=== PATIENT | female | born 1950 | race Caucasian/White ===

== ENCOUNTER 2016-07-01 11:41 | Observation (INO) ==
[2016-07-01] MEDS ORDERED: ACETAMINOPHEN 325 MG TABLET PO PRN (11:46)
[2016-07-01] MEDS ORDERED: ONDANSETRON 4 MG/2 ML VIAL IV PRN (11:46)
[2016-07-01] MEDS ORDERED: MORPHINE 2 MG/1 ML SYRINGE IV PRN (11:46)
[2016-07-01] MEDS ORDERED: ENOXAPARIN 40 MG/0.4 ML SYRINGE SUBCUT SCH (12:00)
--- NOTE | 2016-07-01 15:10 | EKG Report ---
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
--- NOTE | 2016-07-01 15:12 | Orthopedic Consult Note ---
History of Present Illness Chief complaint: Left hip pain History of present illness: Ms. Danielle is a very pleasant 66 year old female who is direct admitted to the hospital by Dr. Villafana for a MRI result of left hip effusion. Ms. Danielle states that she had left hip and leg pain following a exercise on a treadmill. She states that this exercise was slightly more difficult than her normal routine and she increased the incline and variability of the treadmill with the exercise. She believes this was a muscular strain causing the pain when she initially presented to Dr. Villafana office. Is a Dr. Villafana obtained x-rays which are unremarkable and ordered an MRI which showed a left hip effusion. She has been to the hospital for possible left hip aspiration. Orthopedics is consulted for the left hip effusion She denies any fevers, chills, night sweats, night chills, nausea, vomiting, diarrhea, recent illnesses including but not limited to strep throat. States that the pain is starting to resolve and that she is able to bear 100% of weight on her left leg without significant difficulty. She is increased pain with resisted hip flexion. Denies any pain with rotation of her hip. Denies any numbness or tingling. Home Medications Medication Instructions Recorded Confirmed Type Cyclobenzaprine [Flexeril] 10 mg PO Q8HR PRN 07/01/16 07/01/16 History Diclofenac Potassium 1 tablet PO TID 07/01/16 07/01/16 History Allergies Allergy/AdvReac Type Severity Reaction Status Date / Time Sulfa (Sulfonamide Allergy Unknown Verified 07/01/16 15:02 Antibiotics) 12 point system: reviewed and no additional remarkable complaints except as stated Medical,Surgical,& Family Hx - Medical History Musculoskeletal: History of: Back/Neck Problems (arthritis) - Surgical History Thoracic Surgeries: Patient denies;: Organ Transplant Reproductive Surgeries: Surgical HX of;: Hysterectomy (1989) Orthopedic Surgeries: Surgical HX of;: Orthopedic Surgery (left knee scope 2011, ) - Family History Family History: Reports;: Family Cancer (father, mother ,sister and grandparents ) - Social History Smoking Status: Never smoker Frequency of Alcohol Use: Rarely Marital Status: Lives With:: Spouse Functional capacity: independent ambulation Exam - Constitutional Vitals: Period Temp Pulse Resp BP Sys/Tee Pulse Ox Last 24 Hr 97.8 F 96 18 149/79 95 General appearance: normal weight, no acute distress - Head Head exam: Present: normal inspection, normocephalic, atraumatic - Eye Eye exam: Present: EOMI Pupils: Present: GABRIEL - ENT ENT exam: Present: normal exam - Neck Neck exam: Present: normal inspection - Respiratory Respiratory exam: Absent: accessory muscle use, wheezes - Cardiovascular Cardiovascular exam: Present: regular rate and rhythm - GI/Abdominal GI/Abdominal exam: Absent: distended, firm - Expanded Left Lower Hip exam: Present: normal inspection, full ROM, external rotation (Full without pain), internal rotation (Full without pain). Absent: swelling, crepitus, deformity, dislocation, ecchymosis, erythema, shortening Upper Leg exam: Present: normal inspection Knee exam: Present: normal inspection Lower leg exam: Present: normal inspection Ankle exam: Present: normal inspection Foot/Toe exam: Present: normal inspection Neuro vascular tendon exam: Absent: abnormal 2-point discrimination, abnormal cap refill, decreased fine/light touch, motor deficit, sensory deficit Gait: Present: observed and normal (Able to bear 100% weight to left lower extremity) Right Lower Hip exam: Present: normal inspection, full ROM, external rotation (Normal pain- free range of motion), internal rotation (Normal pain-free range of motion). Absent: swelling, tenderness, crepitus, deformity, dislocation, ecchymosis, erythema Upper Leg exam: Present: normal inspection Knee exam: Present: normal inspection Lower leg exam: Present: normal inspection Ankle exam: Present: normal inspection Foot/Toe exam: Present: normal inspection Neuro vascular tendon exam: Absent: abnormal 2-point discrimination, abnormal cap refill, decreased fine/light touch, motor deficit, sensory deficit Gait: Present: observed and normal - Neurological Exam Neurological exam: Present: alert, oriented X3, normal gait, CN II-XII intact - Psychiatric Psychiatric exam: Present: normal affect, normal mood - Skin Skin exam: Present: normal color, warm Results - Diagnostic Findings Procedure: MRI: image reviewed by me, report reviewed by me (Left hip effusion, left gluteus minimus strain, left iliac a strain) Assessment and Plan (1) Effusion, left hip Status: Acute Assessment and plan: Discussed the patient and her who is present for the exam that her left hip effusion is most likely a reactive effusion from her hip strain from her rigorous exercise from last week. Discussed other possibilities of hip effusion which include but are not limited to infection, arthritis, intra-articular injury, or other unforeseen causes of hip effusion. Discussed that it is unlikely that her hip effusion is infectious because of her normal presentation and exam and lack of infectious signs or symptoms including but not limited to fevers, chills, night sweats and pain with ambulation and range of motion. At this point I recommend continued observation. Discussed the probability of her obtaining an interventional radiology aspiration of the hip joint to obtain fluid from the effusion for further analysis We will follow while she is in the hospital and will follow the results of her lab work. Current Visit: Yes (2) Strain of left hip Status: Acute Current Visit: Yes
[2016-07-01 15:14] LABS: Basophils % 0.3 % (0.0-0.8); Eosinophils # 0.3 10*3/uL (0.0-0.87); Hematocrit 42.2 VOL% (35.7-47.0); Hemoglobin 13.7 GM/DL (12.0-16.0); Immature Granulocytes % 0.3 %; Immature Granulocytes Absolute 0.03 #; Lymphocytes % 23.3 % (21.3-54.2); Mean Corpuscular HGB Conc 32.5 GM/DL (32-36); Mean Corpuscular Hemoglobin 30 PG (27-34); Mean Corpuscular Volume 91.3 FL (87-102); Mean Platelet Volume 10.8 FL (9.6-12.0); Monocytes # 0.9 10*3/uL (0.11-0.8); Monocytes % 10.3 % (1.7-12.7); Neutrophils # 5.5 10*3/uL (1.4-7.4); Neutrophils % 62.8 % (38.7-73.9); Platelet Count 278 T/CUMM (130-400); Red Blood Count 4.62 MC/CUMM (3.8-5.5); Red Cell Distribution Width 13.1 % (9.3-17.3); White Blood Count 8.8 T/CUMM (4-12)
[2016-07-01 15:33] LABS: Rheumatoid Factor < 15 IU/ML (<15)
[2016-07-01 15:36] LABS: Alanine Aminotransferase 27 U/L (13-56); Albumin 3.6 G/DL (3.4-5.0); Alkaline Phosphatase 75 U/L (45-117); Aspartate Amino Transferase 19 U/L (0-37); Bilirubin,Total < 0.39 MG/DL (0.2-1.0); Blood Urea Nitrogen 16 MG/DL (7-18); Calcium 8.8 MG/DL (8.5-10.1); Glucose 95 MG/DL (74-106); Osmolality,Calculated 281.3 MOS/KG (273-304); Sodium 141 MMOL/L (136-145); Total Protein 6.7 G/DL (6.4-8.3)
[2016-07-01] MEDS: SODIUM CHLORIDE 0.9% 1,000 ML IV SCH ×2 (15:36→20:50)
[2016-07-01 16:55] LABS: Apearance,Urine CLEAR (Clear); Bacteria,Urine Occasional /HPF (Few); Bilirubin,Urine Negative (Negative); Blood, Urine Negative (Negative); Glucose,Urine (UA) Negative (Negative); Ketones,Urine Negative (Negative); Mucus,Urine Occasional /LPF (Occasional); Nitrite,Urine Negative (Negative); Protein,Urine Negative; RBC,Urine 1 /HPF (0-4); Squamous Epithelial Cell,Urine Occasional /HPF (0-10); Urine Color Yellow (Yellow); Urine Specific Gravity 1.013 (1.001-1.035); Urine Urobilinogen < 2.0 EU/DL (0.2-1.0); WBC,Urine 25 /HPF (0-6)
[2016-07-01] MEDS: DOCUSATE SODIUM 100 MG CAPSULE PO SCH (20:45)
--- NOTE | 2016-07-02 07:20 | Family Practice History&Phys ---
Assessment and Plan (1) Effusion, left hip Status: Acute Assessment and plan: 07/02/2016: Patient's sed rate slightly elevated at 33 but her CRP is very minimally elevated. She was seen the orthopedist yesterday did not think she had an infectious process. I am inclined to agree. I am going to review her MRI studies with radiology today. Current Visit: Yes History of Present Illness Chief complaint: Left hip pain History of present illness: Ms. Danielle is a 66 year old female Patient 66-year-old white female present in the office earlier in the week with left hip pain. MRI was ordered which revealed her to have inflammation around the gluteus minimus muscle but also moderate left hip joint effusion. Patient had no history of trauma or injury of any sort. She has not been having any fever or chills. The radiologist was concerned about the possibility of an infectious arthritis and I asked patient to come to the hospital for further evaluation. Home Medications Medication Instructions Recorded Confirmed Type Cyclobenzaprine [Flexeril] 10 mg PO Q8HR PRN 07/01/16 07/01/16 History Diclofenac Potassium 1 tablet PO TID 07/01/16 07/01/16 History Allergies Allergy/AdvReac Type Severity Reaction Status Date / Time Sulfa (Sulfonamide Allergy Unknown Verified 07/01/16 15:02 Antibiotics) - Constitutional Constitutional: Present: fatigue. Absent: chills, fever(s) - EENT Eyes: Absent: blurry vision, loss of vision Ears: Absent: ear pain Nose, mouth and throat: Absent: hoarseness, nasal congestion, sinus pressure, sore throat - Cardiovascular Cardiovascular: Absent: chest pain at rest, chest pain with activity, orthopnea , palpitations, PND - Respiratory Respiratory: Absent: cough, dyspnea on exertion, wheezing - Gastrointestinal Gastrointestinal: Absent: abdominal pain, diarrhea, dyspepsia, dysphagia, nausea , vomiting - Genitourinary Genitourinary: Absent: difficulty urinating, urinary frequency, urinary hesitancy - Musculoskeletal Musculoskeletal: Present: as per HPI, arthralgias. Absent: back pain - Neurological Neurological: Absent: confusion, dizziness, focal weakness, numbness, paresthesias - Psychiatric Psychiatric: Absent: confusion, depression - Endocrine Endocrine: Absent: fatigue, polydipsia, polyphagia - Hematologic/Lymphatic Hematologic/Lymphatic: Absent: easy bleeding, easy bruising Medical,Surgical,& Family Hx - Medical History Musculoskeletal: History of: Back/Neck Problems (arthritis) - Surgical History Thoracic Surgeries: Patient denies;: Organ Transplant Reproductive Surgeries: Surgical HX of;: Hysterectomy (1989) Orthopedic Surgeries: Surgical HX of;: Orthopedic Surgery (left knee scope 2011, ) - Family History Family History: Reports;: Family Cancer (father, mother ,sister and grandparents ) - Social History Smoking Status: Never smoker Frequency of Alcohol Use: Rarely Exam - Constitutional Vitals: Period Temp Pulse Resp BP Sys/Tee Pulse Ox Last 24 Hr 97.8 F-99.5 F 78-96 18-20 119-149/61-79 95-98 Exam: General: Objective patient is a well-developed white female in no acute distress. Patient is articulate and able give an excellent history. HEENT: Pupils equal and reactive to light. Patent nares and airway Neck: No meningismus, adenopathy, thyromegaly. There are no auscultated carotid bruits. Cardiovascular: Regular rhythm. No murmurs or gallops Chest: Clear to auscultation without rales rhonchi wheezes. Abdomen: Soft nontender to palpation No masses, rebound, guarding or tenderness. Neuro: Cranial nerves intact and DTRs and strength symmetric in all extremities. Dermatologic: No evidence of abnormal lesions or masses. Musculoskeletal: There is no joint swelling or tenderness or deformity. Patient has no pain with hip rotation but has pain in the hip when she tries to raise her left lower extremity from the exam table. Extremities: There is no calf swelling or tenderness. Results - Labs CBC & BMP: 07/01/16 15:02 07/01/16 15:02 Lab Results: I have reviewed the past 24 hour labs - Diagnostic Findings Procedure: MRI: report reviewed by me (Left hip effusion)
[2016-07-02] MEDS ORDERED: PANTOPRAZOLE 40 MG TABLET PO SCH (09:00)
[2016-07-02 09:05] VITALS: BP 113/70
[2016-07-02] MEDS: DOCUSATE SODIUM 100 MG CAPSULE PO SCH (09:24)
--- NOTE | 2016-07-02 12:23 | Discharge Summary ---
Hospital Course - Hospital Course Hospital Course: Patient was admitted to hospital due to a suspicious MRI finding of her L hip suggestive of septic arthritis. Pt had laboratory studies and orthopedic consultation which were not suggestive of that diagnosis. I discussed MRI findings with Dr Adriane Riggs and she recommended arthrocentesis. Patient decided against this as she was feeling better. She understands the potential side effects of this decision and requests discharge. The complications of this decisions were clear to her. Diagnosis - Discharge Diagnosis (1) Effusion, left hip Status: Acute Discharge Plan - Discharge Data Disposition: Disch To Home/Self Care Condition at Discharge: Stable Discharge Diet: advance to your usual diet Activity: resume usual activities as tolerated Hygiene: no restrictions Weight Bearing at Discharge: full weight bearing Driving: no restrictions Contact your physician if you experience:: fever over 101 - Discharge Medications New Acetaminophen Tab [Tylenol Tab] 650 mg PO Q6H PRN #0 tablet PRN Reason: Fever > 100.4 Or Headache Nitrofurantoin Monohyd/M-Cryst [Macrobid 100 mg Capsule] 100 mg PO BID #14 capsule Continue Diclofenac Potassium 1 tablet PO TID Cyclobenzaprine [Flexeril] 10 mg PO Q8HR PRN PRN Reason: Muscle Spasm - Follow Up or Referral Follow Up: Eris Villafana MD [Physician] - 2 Weeks (CBC, CRP on RTC) - Forms/Instructions Exam - Constitutional Vitals: Period Temp Pulse Resp BP Sys/Tee Pulse Ox Last 24 Hr 97.9 F-99.5 F 78-92 18-20 113-128/61-76 95-98 Exam: General: Objective patient is a well-developed white female in no acute distress. Patient is articulate and able give an excellent history. HEENT: Pupils equal and reactive to light. Patent nares and airway Neck: No meningismus, adenopathy, thyromegaly. There are no auscultated carotid bruits. Cardiovascular: Regular rhythm. No murmurs or gallops Chest: Clear to auscultation without rales rhonchi wheezes. Abdomen: Soft nontender to palpation No masses, rebound, guarding or tenderness. Neuro: Cranial nerves intact and DTRs and strength symmetric in all extremities. Dermatologic: No evidence of abnormal lesions or masses. Musculoskeletal: There is no joint swelling or tenderness or deformity. Patient has no pain with hip rotation but has pain in the hip when she tries to raise her left lower extremity from the exam table. Extremities: There is no calf swelling or tenderness. Discharge Results Procedures and tests throughout hospitalization: Pending Orders 07/01/16 Urine Culture Routine 07/01/16 15:02 Blood Culture Stat Labs on day of discharge: Labs from last 24 hours 07/01/16 07/01/16 07/01/16 16:44 15:02 15:02 WBC RBC Hgb Hct MCV MCH MCHC RDW Plt Count MPV Neut % (Auto) Lymph % (Auto) Cook % (Auto) Eos % (Auto) Baso % (Auto) Neut # (Auto) Lymph # (Auto) Cook # (Auto) Eos # (Auto) Baso # (Auto) Immature Gran % Nucleated RBC % Immature Gran # Nucleated RBCs # ESR [place] Sodium Potassium Chloride Carbon Dioxide Anion Gap BUN Creatinine GFR Calculation BUN/Creatinine Ratio Glucose Calculated Osmolality Calcium Total Bilirubin AST ALT Alkaline Phosphatase C-Reactive Protein 0.86 H Total Protein Albumin Globulin Albumin/Globulin Ratio Urine Color Yellow Urine Appearance Clear Urine pH 6.0 Ur Specific [place] 1.013 Urine Protein Negative Urine Glucose (UA) Negative Urine Ketones Negative Urine Blood Negative Urine Nitrate Negative Urine Bilirubin Negative Urine Urobilinogen < 2.0 H Urine Leukocytes Large H Urine RBC 1 Urine WBC 25 Ur Squamous Epith Cells Occasional Urine Bacteria Occasional Urine Mucus Occasional Ur Culture Indicated? Results to follow Rheumatoid Factor < 15 PJ Screen Negative (<1:160) 07/01/16 07/01/16 07/01/16 15:02 15:02 15:02 WBC 8.8 RBC 4.62 Hgb 13.7 Hct 42.2 MCV 91.3 MCH 30 MCHC 32.5 RDW 13.1 Plt Count 278 MPV 10.8 Neut % (Auto) 62.8 Lymph % (Auto) 23.3 Cook % (Auto) 10.3 Eos % (Auto) 3.0 Baso % (Auto) 0.3 Neut # (Auto) 5.5 Lymph # (Auto) 2.0 Cook # (Auto) 0.9 H Eos # (Auto) 0.3 Baso # (Auto) 0.0 Immature Gran % 0.3 Nucleated RBC % 0.0 Immature Gran # 0.03 Nucleated RBCs # 0.00 ESR [place] 33 H Sodium 141 Potassium 4.0 Chloride 106 Carbon Dioxide 29 Anion Gap 10.0 BUN 16 Creatinine 0.60 GFR Calculation 107 BUN/Creatinine Ratio 26.00 H Glucose 95 Calculated Osmolality 281.3 Calcium 8.8 Total Bilirubin < 0.39 AST 19 ALT 27 Alkaline Phosphatase 75 C-Reactive Protein Total Protein 6.7 Albumin 3.6 Globulin 3.1 Albumin/Globulin Ratio 1.1 Urine Color Urine Appearance Urine pH Ur Specific [place] Urine Protein Urine Glucose (UA) Urine Ketones Urine Blood Urine Nitrate Urine Bilirubin Urine Urobilinogen Urine Leukocytes Urine RBC Urine WBC Ur Squamous Epith Cells Urine Bacteria Urine Mucus Ur Culture Indicated? Rheumatoid Factor PJ Screen Preliminary micro results at discharge 07/01/16 Unknown Urine Culture - Preliminary Urine,Clean Catch No Growth at 12 hours. Results noted DS: Provider Date of admission: 07/01/16 11:46 Primary care physician: . No PCP Attending physician on admission: Eris Villafana MD Consults: 07/01/16 11:46 Consult to Case Mgmt/Social Srvs [CONS] Routine Reason for Case Mgmt/Social Srvs: Discharge Planning Consult to Physician [CONS] Routine Comment: Left hip effusion, consult for arthrocentesis Consulting Provider: Mika Campbell Person Notified: LEA Date Notified: 07/02/16 Time Notified: 07:25 Consult Notification Comment: SPOKE TO ALANIS ALSO SHE SAID THEY PROBABLY WONT GET TO THIS PT TODAY. 07/01/16 11:49 Consult to Physician [CONS] Routine Comment: Consulting Provider: Shiraz Cedeño Consulting Provider Notified: Yes Person Notified: Dr. Cedeño Date Notified: 07/01/16 Time Notified: 14:40 Consult Notification Comment: spoke with dr. cedeño via telephone 07/01/16 16:20 Consult to Pharmacy [CONS] Routine Reason for Pharmacy Consult: Adjust Meds Renal Funct Discharging clinician: Eris Villafana MD Expected date of discharge: 07/02/16
== END 2016-07-02 13:49 | disposition home or self-care (01) ==
LOC: N.2E 11:46 → INTOOBSV 11:46
PROVIDERS: ADMIT Family Medicine; ATTEND Family Medicine